=== PATIENT | female | born 1970 ===

== ENCOUNTER 2023-03-12 05:30 | Day surgery (SDC) | payer OTHER ==
[~2023-03-12] VITALS: Ht 170.2 cm; Wt 72.6 kg
[~2023-03-12 05:30] MED LIST: LIPITOR20 MG PO; ZESTORETIC 10-1 EACH PO
== END 2023-03-12 10:20 | disposition home or self-care (01) ==
LOC: CIR.AMB 05:30
PROVIDERS: ATTEND Orthopaedic Surgery Hand Surgery
DX: M67.432 Ganglion, left wrist (principal); M25.832 Other specified joint disorders, left wrist; Z91.040 Latex allergy status; Z20.822 Contact with and (suspected) exposure to COVID-19